=== PATIENT | male | born 1965 | race Two or more races ===

== ENCOUNTER 2024-06-10 22:15 | Inpatient (IN) | payer MEDICAID, OTHER ==
[~2024-06-10] VITALS: Ht 172.7 cm; Wt 93.9 kg
[2024-06-10 22:39] LABS: BASOPHILS % (AUTO) 0.8 % (0.0-2.0); HEMATOCRIT 38.2 % (41-53); HEMOGLOBIN 13.2 g/dL (13.5-17.5); LYMPHOCYTES # (AUTO) 0.8 K/uL (1.0-4.8); LYMPHOCYTES % (AUTO) 17.6 % (22.0-44.0); MEAN CORPUSCULAR HEMOGLOBIN 29.8 pg (26.0-34.0); MEAN CORPUSCULAR HGB CONC 34.6 G/dL (31.0-37.0); MEAN CORPUSCULAR VOLUME 86 fL (80-100); MONOCYTES # (AUTO) 0.7 K/uL (0.1-1.0); MONOCYTES % (AUTO) 13.8 % (2.0-9.0); NEUTROPHILS # (AUTO) 3.1 K/uL (1.8-7.7); NEUTROPHILS % (AUTO) 63.8 % (40.0-70.0); PLATELET COUNT (AUTO) 211 K/uL (150-450); RED BLOOD CELL COUNT(AUTO) 4.43 MIL/uL (4.50-5.90); RED CELL DISTRIBUTION WIDTH 15.3 % (11.5-14.5); WHITE BLOOD COUNT (AUTO) 4.8 K/uL (4.5-11.0)
[2024-06-10 22:47] LABS: ANION GAP 9 mmol/L (8-16); CALCIUM, TOTAL 8.5 mg/dL (8.8-10.5); CARBON DIOXIDE 27 mmol/L (22-29); CHLORIDE 106 mmol/L (98-107); CREATININE 1.09 mg/dL (0.60-1.30); GLOMERULAR FILTR. RATE CALC > 60 mL/min (>60); GLUCOSE,RANDOM 85 mg/dL (70-110); POTASSIUM 3.4 mmol/L (3.5-5.1); SODIUM SERUM 142 mmol/L (136-145); UREA NITROGEN, BLOOD 16 mg/dL (7-18)
[2024-06-10 22:53] LABS: ALCOHOL, BLOOD (SERUM) < 3 mg/dL (0-10)
[2024-06-11] VITALS: O2SAT 100
[2024-06-11 02:49] LABS: PH,URINE DRUG SCREEN 5.5 (5.0-8.0)
[2024-06-11 02:56] LABS: ALCOHOL, URINE DRUG SCREEN NEGATIVE (NEGATIVE); AMPHET/METH SCREEN,URINE NEGATIVE (NEGATIVE); BARBITURATE SCREEN, URINE NEGATIVE (NEGATIVE); BENZODIAZEPINES SCREEN,URINE NEGATIVE (NEGATIVE); CANNABINOID SCREEN,URINE NEGATIVE (NEGATIVE); COCAINE SCREEN,URINE NEGATIVE (NEGATIVE); METHADONE SCREEN, URINE NEGATIVE (NEGATIVE); OPIATE SCREEN,URINE NEGATIVE (NEGATIVE); PHENCYCLIDINE SCREEN,URINE NEGATIVE (NEGATIVE)
[2024-06-11] MEDS: POTASSIUM CHLORIDE 20 MEQ ER TABLET PO ONE (03:32)
[2024-06-11 03:44] LABS: COVID AG,FIA SOURCE NASAL SWAB
[2024-06-11 03:54] LABS: SARS-COV2 (COVID) ANTIGEN,FIA Negative (Negative)
[2024-06-11] MEDS ORDERED: HALOPERIDOL 5 MG TABLET PO PRN (04:00)
[2024-06-11] MEDS ORDERED: ZOLPIDEM TARTRATE 10 MG TABLET PO PRN (04:00)
[2024-06-11] MEDS ORDERED: LORazepam 2 MG TABLET PO PRN (04:00)
[2024-06-11 05:06] VITALS: BP 135/81; PULSE 67; RESP 18; TEMP 97; O2SAT 98
[2024-06-11 05:40] LABS: GLUCOMETER DEV NAME(LOC) BV2S.; GLUCOSE,POINT OF CARE 110 MG/DL (70-110)
[2024-06-11] MEDS: PNEUMOCOCCAL VACCINE POLYVALENT 0.5 ML SYRINGE [PPSV23] IM. ONE (06:57)
[2024-06-11 08:16] VITALS: BP 120/70; PULSE 70; RESP 16; TEMP 97.4; O2SAT 98
[2024-06-11] MEDS ORDERED: SERT-438 PO (11:49)
[2024-06-11] MEDS ORDERED: BUPR-562 PO (11:49)
[2024-06-11] MEDS: BuPROPion HCL XL 150 MG ER TABLET PO SCH (12:24)
[2024-06-11] MEDS: SERTRALINE HCL 100 MG TABLET PO SCH (12:24)
[2024-06-11] MEDS ORDERED: ALBUTEROL SULFATE HFA 90 MCG/PUFF 8 GM INHALER IH PRN (15:00)
[2024-06-11] MEDS ORDERED: IBUPROFEN 400 MG TABLET PO PRN (15:00)
[2024-06-11] MEDS ORDERED: MAG HYDROX/ALUMINUM HYD/SIMETH ES 30 ML SUSPENSION UDCUP PO PRN (15:00)
[2024-06-11] MEDS ORDERED: CloNIDine HCL 0.1 MG TABLET PO PRN (15:00)
[2024-06-11] MEDS ORDERED: ONDANSETRON 4 MG TABLET PO PRN (15:00)
[2024-06-11] MEDS ORDERED: DOCUSATE SODIUM 100 MG CAPSULE PO PRN (15:00)
[2024-06-11] MEDS ORDERED: NICOTINE 14 MG/24 HOUR PATCH TD PRN (15:00)
[2024-06-11] MEDS ORDERED: PETROLATUM,WHITE 28 GM JELLY TP PRN (15:00)
[2024-06-11] MEDS ORDERED: GuaiFENesin/D-METHORPHAN [SUGAR-FREE] 200-20MG/10 ML SYRUP UDCUP PO PRN (15:00)
[2024-06-11] MEDS ORDERED: MAGNESIUM HYDROXIDE SUSPENSION 30 ML UDCUP PO PRN (15:00)
[2024-06-11] MEDS ORDERED: ACETAMINOPHEN 325 MG TABLET PO PRN (15:00)
[2024-06-11 20:05] VITALS: BP 122/73; PULSE 67; RESP 16; TEMP 97.9; O2SAT 98
[2024-06-12] MEDS: LOPERAMIDE HCL 2 MG CAPSULE PO PRN (06:10)
[2024-06-12 08:29] VITALS: BP 119/78; PULSE 75; RESP 17; TEMP 98.2; O2SAT 98
[2024-06-12 08:33] LABS: HEMOGLOBIN A1C 5.1 % (3.8-5.6)
[2024-06-12 08:47] LABS: CHOL/HDL RATIO 2.6 (4.2-7.3); THYROID STIMULATING HORMONE 0.96 uIU/mL (0.36-3.74)
[2024-06-12 20:29] VITALS: BP 131/78; PULSE 77; RESP 16; TEMP 96.6; O2SAT 97
[2024-06-12] MEDS: MetroNIDAZOLE 500 MG TABLET PO SCH (21:09)
[2024-06-13] MEDS: BENAZEPRIL HCL 20 MG TABLET PO SCH (08:10)
[2024-06-13 08:45] VITALS: BP 131/78; PULSE 76; RESP 20; TEMP 97.7; O2SAT 99
[2024-06-13 09:04] LABS: APPEARANCE,URINE TURBID (CLEAR); BILIRUBIN,URINE NEGATIVE (NEGATIVE); COLOR,URINE ORANGE (YELLOW); GLUCOSE, URINE (UA) NEGATIVE (NEGATIVE); KETONES,URINE NEGATIVE (NEGATIVE); LEUKOCYTE ESTERASE ,URINE TRACE (NEGATIVE); NITRATE,URINE NEGATIVE (NEGATIVE); OCCULT BLOOD,URINE NEGATIVE (NEGATIVE); PROTEIN,URINE 30-70 mg/dL (NEGATIVE); SPECIFIC GRAVITIY, URINE 1.027 (1.003-1.030); UROBILINOGEN,URINE <=1.0 mg/dL (<=1.0)
[2024-06-13 09:40] LABS: BACTERIA,URINE None Seen /HPF (None Seen); RBC,URINE None Seen /HPF (0-2); WBC,URINE 0-2 /HPF (0-5)
[2024-06-13 09:41] LABS: AMORPHOUS SEDIMENT,UR Many /LPF (None Seen); CALCIUM OXALATE CRYSTALS,UR Many /LPF (None Seen)
[2024-06-13] MEDS: TAMSULOSIN HCL 0.4 MG CAPSULE PO SCH (09:53)
[2024-06-13 10:45] LABS: C.DIFF GDH ANTIGEN, Stool Positive (Negative); C.DIFF TOXINS A&B, Stool Negative (Negative)
[2024-06-13] MEDS ORDERED: METR500 PO (15:23)
[2024-06-13] MEDS ORDERED: TAMS0.4C94 PO (15:24)
[2024-06-14] MEDS ORDERED: LORA-1001 PO (03:18)
[2024-06-14] MEDS ORDERED: HALO5TAB23 PO (03:18)
[2024-06-14] MEDS ORDERED: SERT-162 PO (03:18)
[2024-06-14] MEDS ORDERED: LOPE-232 PO (03:18)
[2024-06-14] MEDS ORDERED: BENA-18 PO (03:18)
[2024-06-14] MEDS ORDERED: ACET-2247 PO (03:18)
[2024-06-14] MEDS ORDERED: ONDA-104 PO (03:18)
[2024-06-14] MEDS ORDERED: GUAI-1217 PO (03:18)
[2024-06-14] MEDS ORDERED: DOCU-385 PO (03:18)
[2024-06-14] MEDS ORDERED: BUPR-514 PO (03:18)
[2024-06-14] MEDS ORDERED: ALBU18HF12 IH (03:18)
[2024-06-14] MEDS ORDERED: CLON0.1T2 PO (03:18)
[2024-06-14] MEDS ORDERED: ZOLP-162 PO (03:18)
[2024-06-14] MEDS ORDERED: MAGN-169 PO (03:18)
[2024-06-14] MEDS ORDERED: IBUP-1506 PO (03:18)
[2024-06-14] MEDS ORDERED: NICO-650 TD (04:34)
[2024-06-14] MEDS ORDERED: MAG30ORA22 PO (04:34)
== END 2024-06-13 14:10 | disposition short-term general hospital (02) | DRG 751 ==
LOC: EMS 22:17 → B2S 06-11 04:05
PROVIDERS: ADMIT Psychiatry & Neurology Psychiatry; ATTEND Psychiatry & Neurology Psychiatry
PROC: GZHZZZZ Group Psychotherapy (ICD-10-PCS; principal; 2024-06-12)
DX: F33.2 Major depressive disorder, recurrent severe without psychotic features (principal); R45.851 Suicidal ideations; D64.9 Anemia, unspecified; E87.6 Hypokalemia; Z20.822 Contact with and (suspected) exposure to COVID-19; F15.20 Other stimulant dependence, uncomplicated; N40.0 Benign prostatic hyperplasia without lower urinary tract symptoms; N41.1 Chronic prostatitis; Z59.00 Homelessness unspecified; Z79.899 Other long term (current) drug therapy; Z85.46 Personal history of malignant neoplasm of prostate; Z87.891 Personal history of nicotine dependence
CPT/HCPCS: 80048; 80061; 80307; 81001; 82962; 83036; 84132; 84443; 85025; 87324; 87449; 99285; G0480

== ENCOUNTER 2024-06-13 14:41 | Inpatient (IN) | payer MEDICAID, OTHER ==
[~2024-06-13] VITALS: Ht 172.7 cm; Wt 90.8 kg
[~2024-06-13 14:41] MED LIST: BUPR-562 PO; SERT-438 PO
[2024-06-13] MEDS ORDERED: METR500 PO (15:23)
[2024-06-13] MEDS ORDERED: TAMS0.4C94 PO (15:24)
[2024-06-13 18:22] LABS: BASOPHILS % (AUTO) 0.6 % (0.0-2.0); EOSINOPHILS % (AUTO) 2.7 % (1.0-6.0); HEMOGLOBIN 14.5 g/dL (13.5-17.5); LYMPHOCYTES # (AUTO) 0.8 K/uL (1.0-4.8); LYMPHOCYTES % (AUTO) 12.1 % (22.0-44.0); MEAN CORPUSCULAR HEMOGLOBIN 29.4 pg (26.0-34.0); MEAN CORPUSCULAR HGB CONC 33.7 G/dL (31.0-37.0); MEAN CORPUSCULAR VOLUME 87 fL (80-100); MONOCYTES # (AUTO) 0.7 K/uL (0.1-1.0); MONOCYTES % (AUTO) 10.4 % (2.0-9.0); NEUTROPHILS # (AUTO) 5.2 K/uL (1.8-7.7); NEUTROPHILS % (AUTO) 74.2 % (40.0-70.0); PLATELET COUNT (AUTO) 220 K/uL (150-450); RED BLOOD CELL COUNT(AUTO) 4.93 MIL/uL (4.50-5.90); RED CELL DISTRIBUTION WIDTH 15.5 % (11.5-14.5)
[2024-06-13 18:33] LABS: ANION GAP 9 mmol/L (8-16); CALCIUM, TOTAL 8.9 mg/dL (8.8-10.5); CARBON DIOXIDE 29 mmol/L (22-29); CHLORIDE 104 mmol/L (98-107); CREATININE 1.06 mg/dL (0.60-1.30); GLOMERULAR FILTR. RATE CALC > 60 mL/min (>60); GLUCOSE,RANDOM 96 mg/dL (70-110); POTASSIUM 4.1 mmol/L (3.5-5.1); SODIUM SERUM 142 mmol/L (136-145); UREA NITROGEN, BLOOD 15 mg/dL (7-18)
[2024-06-13] MEDS: SODIUM CHLORIDE 0.9% 1,000 ML IV ONE (19:04)
[2024-06-13] MEDS: MetroNIDAZOLE 250 MG TABLET PO ONE (19:04)
[2024-06-13] MEDS ORDERED: ONDANSETRON HCL 4 MG/2 ML VIAL IVP PRN (22:15)
[2024-06-13] MEDS ORDERED: ACETAMINOPHEN 325 MG TABLET PO PRN (22:15)
[2024-06-13] MEDS ORDERED: BISACODYL 10 MG RECTAL RECTAL SUPPOSITORY PR PRN (22:15)
[2024-06-13] MEDS ORDERED: MORPHINE SULFATE 2 MG/ML SYRINGE IVP PRN (22:15)
[2024-06-13] MEDS ORDERED: HYDROCODONE/ACETAMINOPHEN 5-325 MG TABLET PO PRN (22:15)
[2024-06-14] MEDS: HEPARIN SODIUM,PORCINE 5,000 UNITS/ML VIAL SQ SCH (00:40)
[2024-06-14] MEDS ORDERED: ALBU18HF12 IH (03:18)
[2024-06-14] MEDS ORDERED: ZOLP-162 PO (03:18)
[2024-06-14] MEDS ORDERED: LOPE-232 PO (03:18)
[2024-06-14] MEDS ORDERED: ONDA-104 PO (03:18)
[2024-06-14] MEDS ORDERED: BENA-18 PO (03:18)
[2024-06-14] MEDS ORDERED: SERT-162 PO (03:18)
[2024-06-14] MEDS ORDERED: IBUP-1506 PO (03:18)
[2024-06-14] MEDS ORDERED: ACET-2247 PO (03:18)
[2024-06-14] MEDS ORDERED: DOCU-385 PO (03:18)
[2024-06-14] MEDS ORDERED: GUAI-1217 PO (03:18)
[2024-06-14] MEDS ORDERED: HALO5TAB23 PO (03:18)
[2024-06-14] MEDS ORDERED: LORA-1001 PO (03:18)
[2024-06-14] MEDS ORDERED: CLON0.1T2 PO (03:18)
[2024-06-14] MEDS ORDERED: BUPR-514 PO (03:18)
[2024-06-14] MEDS ORDERED: MAGN-169 PO (03:18)
[2024-06-14 04:09] VITALS: BP 140/83; PULSE 65; RESP 20; TEMP 97.8; O2SAT 98
[2024-06-14] MEDS ORDERED: MAG30ORA22 PO (04:34)
[2024-06-14] MEDS ORDERED: NICO-650 TD (04:34)
[2024-06-14 07:40] VITALS: BP 128/75; PULSE 63; RESP 19; TEMP 97.8; O2SAT 97
[2024-06-14 07:47] LABS: BASOPHILS % (AUTO) 0.5 % (0.0-2.0); EOSINOPHILS % (AUTO) 2.6 % (1.0-6.0); HEMATOCRIT 39.3 % (41-53); HEMOGLOBIN 13.8 g/dL (13.5-17.5); LYMPHOCYTES # (AUTO) 0.8 K/uL (1.0-4.8); LYMPHOCYTES % (AUTO) 13.2 % (22.0-44.0); MEAN CORPUSCULAR HEMOGLOBIN 30.1 pg (26.0-34.0); MEAN CORPUSCULAR HGB CONC 35.1 G/dL (31.0-37.0); MEAN CORPUSCULAR VOLUME 86 fL (80-100); MONOCYTES # (AUTO) 0.7 K/uL (0.1-1.0); MONOCYTES % (AUTO) 11.8 % (2.0-9.0); NEUTROPHILS # (AUTO) 4.4 K/uL (1.8-7.7); NEUTROPHILS % (AUTO) 71.9 % (40.0-70.0); PLATELET COUNT (AUTO) 201 K/uL (150-450); RED BLOOD CELL COUNT(AUTO) 4.59 MIL/uL (4.50-5.90); RED CELL DISTRIBUTION WIDTH 15.6 % (11.5-14.5); WHITE BLOOD COUNT (AUTO) 6.2 K/uL (4.5-11.0)
[2024-06-14 07:52] LABS: ANION GAP 9 mmol/L (8-16); CALCIUM, TOTAL 8.6 mg/dL (8.8-10.5); CARBON DIOXIDE 27 mmol/L (22-29); CHLORIDE 105 mmol/L (98-107); CREATININE 1.08 mg/dL (0.60-1.30); GLOMERULAR FILTR. RATE CALC > 60 mL/min (>60); GLUCOSE,RANDOM 92 mg/dL (70-110); POTASSIUM 3.8 mmol/L (3.5-5.1); SODIUM SERUM 141 mmol/L (136-145); UREA NITROGEN, BLOOD 13 mg/dL (7-18)
[2024-06-14] MEDS: PANTOPRAZOLE SODIUM 40 MG DR TABLET PO SCH (09:00)
[2024-06-14] MEDS: DOCUSATE SODIUM 100 MG CAPSULE PO SCH (09:00)
[2024-06-14] MEDS: MetroNIDAZOLE 500 MG TABLET PO SCH (11:33)
[2024-06-14] MEDS: SERTRALINE HCL 100 MG TABLET PO SCH (15:06)
[2024-06-14] MEDS: BuPROPion HCL XL 150 MG ER TABLET PO SCH (15:06)
[2024-06-14 16:05] VITALS: BP 126/78; PULSE 61; RESP 19; TEMP 97.9; O2SAT 98
[2024-06-14 19:30] VITALS: BP 126/73; PULSE 68; RESP 20; TEMP 98.3; O2SAT 98
[2024-06-14] MEDS: ZOLPIDEM TARTRATE 5 MG TABLET PO PRN (22:04)
[2024-06-15 05:08] VITALS: BP 124/69; PULSE 62; RESP 20; TEMP 97.7; O2SAT 98
[2024-06-15 07:07] LABS: BASOPHILS % (AUTO) 0.6 % (0.0-2.0); HEMATOCRIT 42.2 % (41-53); HEMOGLOBIN 14.7 g/dL (13.5-17.5); LYMPHOCYTES # (AUTO) 0.9 K/uL (1.0-4.8); LYMPHOCYTES % (AUTO) 14.4 % (22.0-44.0); MEAN CORPUSCULAR HEMOGLOBIN 29.9 pg (26.0-34.0); MEAN CORPUSCULAR HGB CONC 34.7 G/dL (31.0-37.0); MEAN CORPUSCULAR VOLUME 86 fL (80-100); MONOCYTES # (AUTO) 0.8 K/uL (0.1-1.0); MONOCYTES % (AUTO) 12.9 % (2.0-9.0); NEUTROPHILS # (AUTO) 4.3 K/uL (1.8-7.7); NEUTROPHILS % (AUTO) 69.1 % (40.0-70.0); PLATELET COUNT (AUTO) 207 K/uL (150-450); RED BLOOD CELL COUNT(AUTO) 4.91 MIL/uL (4.50-5.90); RED CELL DISTRIBUTION WIDTH 15.6 % (11.5-14.5); WHITE BLOOD COUNT (AUTO) 6.3 K/uL (4.5-11.0)
[2024-06-15 07:21] LABS: ANION GAP 5 mmol/L (8-16); CALCIUM, TOTAL 8.9 mg/dL (8.8-10.5); CARBON DIOXIDE 30 mmol/L (22-29); CHLORIDE 104 mmol/L (98-107); GLOMERULAR FILTR. RATE CALC > 60 mL/min (>60); GLUCOSE,RANDOM 90 mg/dL (70-110); POTASSIUM 4.1 mmol/L (3.5-5.1); SODIUM SERUM 139 mmol/L (136-145); UREA NITROGEN, BLOOD 14 mg/dL (7-18)
[2024-06-15 09:19] VITALS: BP 138/90; PULSE 67; RESP 20; TEMP 98.2; O2SAT 100
[2024-06-15 11:44] LABS: APPEARANCE,URINE CLEAR (CLEAR); BILIRUBIN,URINE NEGATIVE (NEGATIVE); COLOR,URINE LIGHT YELLOW (YELLOW); GLUCOSE, URINE (UA) NEGATIVE (NEGATIVE); KETONES,URINE NEGATIVE (NEGATIVE); LEUKOCYTE ESTERASE ,URINE NEGATIVE (NEGATIVE); NITRATE,URINE NEGATIVE (NEGATIVE); OCCULT BLOOD,URINE NEGATIVE (NEGATIVE); PH,URINE 6.5 (5.0-8.0); PROTEIN,URINE NEGATIVE (NEGATIVE); SPECIFIC GRAVITIY, URINE 1.017 (1.003-1.030); UROBILINOGEN,URINE <=1.0 mg/dL (<=1.0)
[2024-06-15 11:48] LABS: BACTERIA,URINE None Seen /HPF (None Seen); RBC,URINE None Seen /HPF (0-2); WBC,URINE None Seen /HPF (0-5)
[2024-06-15] MEDS: MAGNESIUM HYDROXIDE SUSPENSION 30 ML UDCUP PO PRN (15:22)
[2024-06-15 16:16] VITALS: BP 126/80; PULSE 69; RESP 20; TEMP 98.1; O2SAT 97
[2024-06-15] MEDS: VANCOMYCIN HCL 250 MG/5 ML SOLUTION ORAL.SYG PO SCH (17:23)
[2024-06-15 20:24] VITALS: BP 151/78; PULSE 69; RESP 18; TEMP 98; O2SAT 96
[2024-06-16 04:43] VITALS: BP 129/84; PULSE 60; RESP 17; TEMP 97.7; O2SAT 99
[2024-06-16 07:14] LABS: BASOPHILS % (AUTO) 0.4 % (0.0-2.0); EOSINOPHILS % (AUTO) 2.4 % (1.0-6.0); HEMATOCRIT 43.5 % (41-53); LYMPHOCYTES # (AUTO) 0.9 K/uL (1.0-4.8); LYMPHOCYTES % (AUTO) 14.8 % (22.0-44.0); MEAN CORPUSCULAR HEMOGLOBIN 29.7 pg (26.0-34.0); MEAN CORPUSCULAR HGB CONC 34.5 G/dL (31.0-37.0); MEAN CORPUSCULAR VOLUME 86 fL (80-100); MONOCYTES # (AUTO) 0.7 K/uL (0.1-1.0); MONOCYTES % (AUTO) 10.6 % (2.0-9.0); NEUTROPHILS # (AUTO) 4.5 K/uL (1.8-7.7); NEUTROPHILS % (AUTO) 71.8 % (40.0-70.0); PLATELET COUNT (AUTO) 193 K/uL (150-450); RED BLOOD CELL COUNT(AUTO) 5.05 MIL/uL (4.50-5.90); RED CELL DISTRIBUTION WIDTH 15.5 % (11.5-14.5); WHITE BLOOD COUNT (AUTO) 6.2 K/uL (4.5-11.0)
[2024-06-16 07:28] LABS: ANION GAP 8 mmol/L (8-16); CARBON DIOXIDE 29 mmol/L (22-29); CHLORIDE 103 mmol/L (98-107); GLOMERULAR FILTR. RATE CALC > 60 mL/min (>60); GLUCOSE,RANDOM 98 mg/dL (70-110); POTASSIUM 3.9 mmol/L (3.5-5.1); SODIUM SERUM 140 mmol/L (136-145); UREA NITROGEN, BLOOD 15 mg/dL (7-18)
[2024-06-16 07:45] VITALS: BP 130/83; PULSE 70; RESP 20; TEMP 98.2; O2SAT 98
[2024-06-16] MEDS: BENAZEPRIL HCL 20 MG TABLET PO SCH (08:22)
[2024-06-16] MEDS: TAMSULOSIN HCL 0.4 MG CAPSULE PO SCH (08:24)
[2024-06-16] MEDS ORDERED: VANCOPO PO (13:37)
[2024-06-16] MEDS ORDERED: METR500 PO (13:57)
[2024-06-16 17:28] VITALS: BP 134/78; PULSE 67; RESP 20; TEMP 97.8; O2SAT 96
[2024-06-16 19:35] VITALS: BP 106/83; PULSE 75; RESP 20; TEMP 98.5; O2SAT 98
[2024-06-17 04:36] VITALS: BP 140/93; PULSE 65; RESP 20; TEMP 97.6; O2SAT 98
[2024-06-17 08:24] VITALS: BP 119/80; PULSE 77; RESP 20; TEMP 98.1; O2SAT 98
== END 2024-06-17 10:05 | disposition home or self-care (01) | DRG 248 ==
LOC: EMS 14:41 → EDH 06-14 00:05 → 4E 06-14 02:38
PROVIDERS: ADMIT Internal Medicine; ATTEND Internal Medicine
DX: A04.72 Enterocolitis due to Clostridium difficile, not specified as recurrent (principal); E44.0 Moderate protein-calorie malnutrition; R45.851 Suicidal ideations; F33.2 Major depressive disorder, recurrent severe without psychotic features; N40.0 Benign prostatic hyperplasia without lower urinary tract symptoms; F15.20 Other stimulant dependence, uncomplicated; Z59.00 Homelessness unspecified; Z85.46 Personal history of malignant neoplasm of prostate; Z87.891 Personal history of nicotine dependence; Z68.30 Body mass index [BMI] 30.0-30.9, adult; E86.0 Dehydration
CPT/HCPCS: 80048; 81001; 85025; 87081; 99285; G0378; J1644; J7030